=== PATIENT | female | born 1985 | race Caucasian/White ===

== ENCOUNTER 2022-03-25 08:56 | Emergency (ER) | payer OTHER ==
[~2022-03-25] VITALS: Ht 154.9 cm; Wt 74.4 kg
[~2022-03-25 08:56] MED LIST: CIPRO500 MG PO; LEVAQUIN750 MG PO; PERCOCET 5/3251 TAB PO; TAMS0.4C PO; TESSALON PERLE100 M1 PO; TUSSI PRES-B L120 M1 PO
== END 2022-03-25 12:32 | disposition home or self-care (01) ==
LOC: ER 08:56
DX: J03.90 Acute tonsillitis, unspecified (principal)